=== PATIENT | female | born 1995 | race Caucasian/White ===

== ENCOUNTER 2021-05-09 16:37 | Inpatient (IN) | payer OTHER ==
[~2021-05-09] VITALS: Ht 162.6 cm; Wt 100.7 kg
[~2021-05-09 16:37] MED LIST: COLACE 100MG C100 MG PO; MACROBID 100 M100 MG PO; ZOFRAN4 MG PO
[2021-05-09 17:37] LABS: HEMOGLOBIN 9.2 gm/dl (12.3-15.3); RED BLOOD COUNT 3.75 M/UL (4.00-5.10); WHITE BLOOD COUNT 6.9 K/UL (4.5-11.0)
[2021-05-09 17:48] LABS: BUN/CREATININE RATIO 5 (0-10)
[2021-05-10] MEDS ORDERED: IBUPROFEN600 MG PO (19:21)
[2021-05-10] MEDS ORDERED: FEROSUL325 MG PO (19:21)
[2021-05-10] MEDS ORDERED: DOCUSATE SODIU250 MG PO (19:21)
[2021-05-11 06:52] LABS: HEMOGLOBIN 8.5 gm/dl (12.3-15.3)
== END 2021-05-11 21:04 | disposition home or self-care (01) | DRG 807 ==
LOC: GENOP 16:37 → OB 17:01
PROVIDERS: Obstetrics & Gynecology; ADMIT Obstetrics & Gynecology
PROC: 10E0XZZ Delivery of Products of Conception, External Approach (ICD-10-PCS; principal; 2021-05-09)
PROC: 0KQM0ZZ Repair Perineum Muscle, Open Approach (ICD-10-PCS; 2021-05-09)
PROC: 10907ZC Drainage of Amniotic Fluid, Therapeutic from Products of Conception, Via Natural or Artificial Opening (ICD-10-PCS; 2021-05-09)
PROC: 3E033VJ Introduction of Other Hormone into Peripheral Vein, Percutaneous Approach (ICD-10-PCS; 2021-05-09)
PROC: 0U7C7ZZ Dilation of Cervix, Via Natural or Artificial Opening (ICD-10-PCS; 2021-05-09)
PROC: 4A1HXCZ Monitoring of Products of Conception, Cardiac Rate, External Approach (ICD-10-PCS; 2021-05-09)
DX: O14.94 Unspecified pre-eclampsia, complicating childbirth (principal); Z37.0 Single live birth; Z3A.37 37 weeks gestation of pregnancy; O70.1 Second degree perineal laceration during delivery; Z20.822 Contact with and (suspected) exposure to COVID-19
CPT/HCPCS: 36415; 51702; 80053; 81001; 82800; 85014; 85018; 85025; J2405; J2590; J7120; U0002